=== PATIENT | male | born 1960 | race Caucasian/White ===

== ENCOUNTER 2017-01-19 14:45 | Emergency (ER) | payer MEDICARE, MEDICAID ==
[~2017-01-19 14:45] MED LIST: ASPIRIN 81MG TA81 MG PO; BACTRIM DS 8001 TA1 PO; CLOPIDOGREL75 M2 PO; CRESTOR5 MG PO; GABAPENTIN 600600 MG PO; LISINOPRIL30 MG PO; MELOXICAM15 MG PO; ROSUVASTATIN CA20 MG PO
--- OUTSIDE RECORDS SUMMARY | 2017-01-24 07:50 | External Medical Summary Rpt ---
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 J44.9 Chronic obstructive pulmonary disease, unspecified L03.313 CELLULITIS OF CHEST WALL L73.2 HIDRADENITI S SUPPURATIVA M54.5 Low back pain Z00.00 Encounter for general adult medical examination without abnormal findings Z12.11 Encounter for screening for malignant neoplasm of colon Z12.5 Encounter for screening for malignant neoplasm of prostate Z13.0 Encounter for screening for diseases of the blood and blood-formi ng organs and certain disorders involving the immune mechanism Z13.1 Encounter for screening for diabetes mellitus Z13.21 Encounter for screening for nutritional disorder Z13.220 Encounter for screening for lipoid disorders Z13.29 Encounter for screening for other suspected endocrine disorder
--- OUTSIDE RECORDS SUMMARY | 2017-01-24 07:50 | External Medical Summary Rpt ---
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
--- OUTSIDE RECORDS SUMMARY | 2017-01-24 07:51 | External Medical Summary Rpt ---
Demographics Preferred Language Lao Marital Status Unknown Catholic Affiliation Unknown Race Unknown Ethnic Group Unknown Author Author GRIS Address Unknown Phone [email or web address] Purpose Continuity of Care Document - through 2016
--- OUTSIDE RECORDS SUMMARY | 2017-01-24 07:51 | External Medical Summary Rpt ---
Demographics Preferred Language Frisian Marital Status Unknown Restorationist Affiliation Unknown Race Unknown Ethnic Group Unknown Author Author GRIS Address Unknown Phone Immunization No patient found.
--- OUTSIDE RECORDS SUMMARY | 2017-01-24 07:51 | External Medical Summary Rpt ---
Demographics Preferred Language Greenlandic Marital Status Unknown Scientologist Affiliation Unknown Race Unknown Ethnic Group Unknown Author Author GRIS Address Unknown Phone Purpose Continuity of Care Document - through 2016
--- OUTSIDE RECORDS SUMMARY | 2017-01-24 07:51 | External Medical Summary Rpt ---
Demographics Preferred Language [place] Marital Status Unknown Uatsdin Affiliation Unknown Race Unknown Ethnic Group Unknown Author Author GRIS Address Unknown Phone Immunization No patient found.
== END 2017-01-19 15:26 | disposition home or self-care (01) ==
LOC: UTC.OUT 14:45 → UTC 14:45 → UTC.OUT 15:26 → UTC 15:26 → EDSTATUS 01-24 07:48
DX: L03.313 Cellulitis of chest wall (principal)
CPT/HCPCS: G0463